=== PATIENT | female | born 1980 | race Caucasian/White ===

== ENCOUNTER 2019-03-14 11:01 | Emergency (ER) | payer BC ==
[2019-03-14] MEDS ORDERED: Alum Hydrox/Mag Hydrox/Simeth 30 ML, Lidocaine 2% 15 ML PO ONE ×2 (11:36)
--- NOTE | 2019-03-14 11:51 | EDM.PDOC ---
ED HPI GENERAL MEDICAL PROBLEM - General Chief Complaint: Abdominal Pain Stated Complaint: ABDOMINAL PAIN Time Seen by Provider: 03/14/19 11:12 Source of Information: Reports: Patient, RN Notes Reviewed History Limitations: Reports: No Limitations - History of Present Illness INITIAL COMMENTS - FREE TEXT/NARRATIVE: Patient is a 39-year-old female who presents to the ED for evaluation of upper sharp abdominal pain. She notes this is in her epigastric region, and she has a history of a bleeding ulcer with cautery around 5 years ago. Patient notes that the pain feels quite similar to when she had the initial ulcer. She notes that she used to take Prilosec, and has been trying famotidine, and Tums but this is not helping. She has not been taking Prilosec for a while. She does note that she has arthritis, and has been taking NSAIDs for inflammation relief , she thinks this is what may have aggravated her ulcer. She is not having any hematemesis, or any sort of black stools. She notes she has been watching her stools religiously to make sure they are not black. Patient notes that the pain is there before she eats, feels better when she does eat, and then hurts 30 minutes after eating. She does not having any fevers or chills, she is having little bit of nausea as well, but no chest pain or shortness of breath. Her primary care provider is Debbie Medina. Left Middle Abdomen Pain Score (Numeric/FACES): 3 - Related Data Allergies Allergy/AdvReac Type Severity Reaction Status Date / Time No Known Allergies Allergy Verified 03/14/19 11:17 Home Meds: Home Meds Lisinopril [Zestril] 10 mg PO DAILY 03/14/19 [History] Omeprazole 40 mg PO BID #20 capsule. 03/14/19 [Rx] Ondansetron [Zofran ODT] 4 mg PO Q8H PRN #12 tab.dis 03/14/19 [Rx] Rosuvastatin [Crestor] 03/14/19 [History] Sucralfate [Carafate] 1 gm PO TIDAC #30 cup 03/14/19 [Rx] Venlafaxine [Effexor] 37.5 mg PO BID 03/14/19 [History] Zolpidem Tartrate [Ambien] 5 mg PO BEDTIME 03/14/19 [History] Past Medical History Cardiovascular History: Reports: High Cholesterol, Hypertension Gastrointestinal History: Reports: PUD (bleeding ulcer with cautery) [employer] History: Reports: Musculoskeletal History: Reports: Arthritis - Past Surgical History HEENT Surgical History: Reports: Myringotomy w Tube(s), Tonsillectomy GI Surgical History: Reports: EGD Female Surgical History: Reports: Section Social & Family History - Family History Family Medical History: Noncontributory - Tobacco Use Smoking Status *Q: Current Every Day Smoker Years of Tobacco use: 20 Packs/Tins Daily: 0.7 - Caffeine Use Caffeine Use: Reports: Coffee, Soda - Alcohol Use Days Per Week of Alcohol Use: 1 Number of Drinks Per Day: 2 Total Drinks Per Week: 2 - Recreational Drug Use Recreational Drug Use: No ED ROS GENERAL - Review of Systems Review Of Systems: See Below Constitutional: Reports: Decreased Appetite (d/t stomach pain). Denies: Fever, Chills HEENT: Denies: Throat Pain, Throat Swelling Respiratory: Denies: Shortness of Breath, Cough Cardiovascular: Denies: Chest Pain GI/Abdominal: Reports: Abdominal Pain (epigastric), Decreased Appetite (d/t pain ), Nausea. Denies: Black Stool, Constipation, Diarrhea, Hematemesis, Hematochezia, Vomiting : Denies: Dysuria Musculoskeletal: Denies: Back Pain ED EXAM, GI/ABD - Physical Exam Exam: See Below Exam Limited By: No Limitations General Appearance: Alert, WD/WN, No Apparent Distress Eyes: Bilateral: Normal Appearance Throat/Mouth: Normal Inspection, Normal Lips, Normal Teeth, Normal Gums, Normal Oropharynx, Normal Voice, No Airway Compromise Head: Atraumatic, Normocephalic Neck: Normal Inspection Respiratory/Chest: No Respiratory Distress, Lungs Clear, Normal Breath Sounds, No Accessory Muscle Use, Chest Non-Tender Cardiovascular: Normal Peripheral Pulses, Regular Rate, Rhythm, No Murmur GI/Abdominal Exam: Normal Bowel Sounds, Soft, No Organomegaly, No Distention, No Mass, Tender (epigastrium and LUQ). No: Rigid, Rebound Extremities: Normal Inspection, Normal Capillary Refill Neurological: Alert, Oriented, Normal Cognition, No Motor/Sensory Deficits Psychiatric: Normal Affect, Normal Mood Skin Exam: Warm, Dry, Intact, Normal Color, No Rash Course - Vital Signs Last Recorded V/S: Last Vital Signs Temp 98.2 F 03/14/19 11:13 Pulse 102 H 03/14/19 11:13 Resp 15 03/14/19 11:13 BP 187/119 H 03/14/19 11:13 Pulse Ox 99 03/14/19 11:13 - Orders/Labs/Meds Meds: Medications Discontinued Medications Generic Name Dose Route Start Last Admin Trade Name Freq PRN Reason Stop Dose Admin Al Hydroxide/Mg Hydroxide 30 0 ml 03/14/19 11:36 03/14/19 11:45 ml/ Lidocaine HCl 15 ml PO 03/14/19 11:37 45 ml ONETIME ONE Administration Ondansetron HCl 4 mg 03/14/19 11:52 03/14/19 12:00 Zofran Odt PO 03/14/19 11:53 4 mg ONETIME ONE Administration Pantoprazole Sodium 40 mg 03/14/19 11:52 03/14/19 12:00 Protonix PO 03/14/19 11:53 40 mg ONETIME ONE Administration Sucralfate 1 gm 03/14/19 12:28 Carafate PO 03/14/19 12:29 ONETIME ONE - Re-Assessments/Exams Free Text/Narrative Re-Assessment/Exam: 03/14/19 11:50 Patient presents to the ED for evaluation of sharp upper abdominal pain. By history and exam, I do believe the patient is suffering from an ulcer in nature. I will start with a GI cocktail here, and recommend she take Prilosec, 40 mg, twice daily for 4 weeks unless told otherwise by her regular provider or general surgery. I will send her home with a prescription for Prilosec, and sucralfate for further GI prophylaxis. Departure - Departure Time of Disposition: 12:30 Disposition: Home, Self-Care 01 Condition: Fair Clinical Impression: History of bleeding peptic ulcer - Discharge Information *PRESCRIPTION DRUG MONITORING PROGRAM REVIEWED*: No *COPY OF PRESCRIPTION DRUG MONITORING REPORT IN PATIENT OMI: No Prescriptions: Omeprazole 40 mg PO BID #20 capsule. Ondansetron [Zofran ODT] 4 mg PO Q8H PRN #12 tab.dis PRN Reason: Nausea Sucralfate [Carafate] 1 gm PO TIDAC #30 cup Instructions: Peptic Ulcer, [id number], Peptic Ulcer Eating Plan Referrals: Key Kline MD [Physician] - 2 Weeks Debbie Medina PA-C [Primary Care Provider] - 2 Weeks Forms: ED Department Discharge Additional Instructions: You were evaluated in the ER today regarding your upper abdominal pain. Your history and exam are most consistent with a recurrent ulcer. Please stop using NSAIDs like ibuprofen or Aleve for pain relief, as this seemed to be aggravating the ulcer. You have been given a few medications to help provide you symptomatic relief, this includes an acid ronald called Prilosec, please take 1 tab 2 times daily for the next 4 weeks, and then you may take 1 tab once daily unless told otherwise by your provider, sucralfate 1 cup 3 times a day at mealtimes for further pain relief, and you have been given a prescription for antinausea medication take 1 tab dissolvable in your mouth every 8 hours as needed for further nausea. You will need to follow-up with your primary care provider, Debbie Medina for further management and evaluation of this ulcer, recommend that you have a general surgery referral for a another EGD. Get an appointment with Debbie as soon as you are able for further management. If you should develop any dark tarry stools, or you are puking up blood, this would be cause for concern to return to the ER for further management. Please return to the ER however if your symptoms should change or worsen. Sepsis Event Note - Evaluation Sepsis Screening Result: No Definite Risk - Focused Exam Vital Signs: Vital Signs Temp Pulse Resp BP Pulse Ox 03/14/19 11:13 98.2 F 102 H 15 187/119 H 99 Date Exam was Performed: 03/14/19 Time Exam was Performed: 12:33
[2019-03-14] MEDS ORDERED: Ondansetron 4 MG Tab.DIS PO ONE (11:52)
[2019-03-14] MEDS ORDERED: Pantoprazole 40 MG Tab.CR PO ONE (11:52)
[2019-03-14] MEDS ORDERED: Sucralfate Suspension 1 GM/10 ML Cup PO ONE (12:28)
== END 2019-03-14 12:43 | disposition home or self-care (01) ==
LOC: JD.ED 11:01
DX: R10.13 Epigastric pain (principal); R10.12 Left upper quadrant pain; I10 Essential (primary) hypertension; E78.00 Pure hypercholesterolemia, unspecified; F17.210 Nicotine dependence, cigarettes, uncomplicated; Z87.11 Personal history of peptic ulcer disease; Z79.899 Other long term (current) drug therapy
CPT/HCPCS: 99283; A9270